=== PATIENT | female | born 1980 | race Two or more races ===

== ENCOUNTER 2025-07-31 09:19 | Emergency (ER) | payer MEDICAID, SELFPAY ==
[2025-07-31 09:34] VITALS: BP 145/88; PULSE 57; RESP 19; TEMP 36.8; O2SAT 99; BMI 34.7
--- NOTE | 2025-07-31 09:48 | PD.EDRME ---
Rapid Medical Screening Exam RME Arrival date/time: 07/31/25 09:19 45-year-old female presents to the emergency department today for complaints of generalized abdominal pain Chief Complaint: Abdominal Pain Vital signs: Vital Signs Temperature 98.3 F 07/31/25 09:34 Pulse Rate 57 L 07/31/25 09:34 Respiratory Rate 19 07/31/25 09:34 Blood Pressure 145/88 H 07/31/25 09:34 Pulse Oximetry (%) 99 07/31/25 09:34 Oxygen Delivery Method Room Air 07/31/25 09:34
[2025-07-31 10:40] LABS: Collection Type, Urine Clean Catch
[2025-07-31 10:44] LABS: Basophils # (Auto) 0.1 Thou/mm3 (0.0-0.2); Basophils % (Auto) 1 % (0-2.5); Eosinophils # (Auto) 0.1 Thou/mm3 (0.0-0.5); Eosinophils % (Auto) 2 % (0-10); Hematocrit 40.1 % (36.0-46.0); Hemoglobin 12.6 g/dL (12.0-16.0); Immature Granulocytes Auto 0.04 Thou/mm3 (0.00-0.00); Lymphocytes # (Auto) 1.6 Thou/mm3 (1.0-4.8); Lymphocytes % (Auto) 22 % (10-50); Mean Corpuscular HGB Conc 31.4 g/dl (31.0-37.0); Mean Corpuscular Hemoglobin 26.8 pg (25.0-35.0); Mean Corpuscular Volume 85 fL (80-100); Monocytes # (Auto) 0.5 Thou/mm3 (0.0-0.8); Monocytes % (Auto) 7 % (0-12); Neutrophils # (Auto) 4.8 Thou/mm3 (1.8-7.7); Neutrophils % (Auto) 68 % (37-80); Nucleated Red Blood Cell # 0.00 Thou/mm3 (0.00-0.00); Nucleated Red Blood Cell % 0 /100 WBC (0); Platelet Count 300 Thou/mm3 (140-440); RDW Standard Deviation 48.6 fL (36.4-46.3); Red Blood Count 4.71 Miln/mm3 (4.00-5.20); White Blood Count 7.1 Thou/mm3 (3.6-11.0)
[2025-07-31 10:52] VITALS: BP 151/86; PULSE 57; RESP 18; TEMP 36.7; O2SAT 100
[2025-07-31 10:56] LABS: HCG Qualitative,Urine Negative
--- NOTE | 2025-07-31 10:58 | PD.EDABDPN ---
ED Abdominal Pain RME/HPI General Chief Complaint: Abdominal Pain Stated complaint: ABD PAIN RATIATES TO BACK Time seen by provider: 07/31/25 10:19 Arrival date/time: 07/31/25 09:19 Limitations: no limitations RME / HPI RME / HPI narrative: 07/31/25 09:19 45-year-old female presents to the emergency department today for complaints of generalized abdominal pain DR. LABOY MAIN ED EVALUATION: 45-year-old female with past medical history of anemia presents to the Emergency Department with abdominal pain. She reports an episode on Saturday lasting 30 minutes that resolved after passing gas. This morning, she experienced a recurrence of pain, which worsened despite attempts at relief with tea and walking. She notes eating cabbage last night. Related Data Allergies Allergy/AdvReac Type Severity Reaction Status Date / Time No Known Allergies Allergy Verified 07/31/25 09:23 Review of Systems Review of Systems Systems Reviewed: All systems reviewed, normal except as documented Past Medical History Past Medical History GASTROINTESTINAL: Positive Gastrointestinal Disorders, Colitis and Gastroesophageal Reflux Disease REPRODUCTIVE: Positive Previous Pregnancies Family History FAMILY HISTORY: Positive Family Cancer (father) Surgical History SURGICAL: Positive Section Social History SMOKING STATUS: Never smoker SUBSTANCE USE: does not use ALCOHOL: Never ED Exam General Limitations: Present no limitations General appearance: Present alert and in no apparent distress Head Head exam: Present atraumatic, normocephalic and normal inspection Eye Eye exam: Present normal appearance, PERRL and EOMI ENT ENT exam: Present normal exam, normal oropharynx and mucous membranes moist Neck Neck exam: Present normal inspection, full ROM and trachea midline Chest Chest inspection: Present normal inspection and symmetric chest wall rise Respiratory Respiratory exam: Present normal lung sounds bilaterally Cardiovascular Cardiovascular exam: Present regular rate, normal rhythm and normal heart sounds Abdominal Exam Abdominal exam: Present soft and other (low-pitched bowel sounds but is otherwise unremarkable) Extremities Exam Extremities exam: Present normal inspection and full ROM Back Exam Back exam: Present normal inspection and full ROM Neurological Exam Neurological exam: Present alert, oriented X3 and CN II-XII intact Psychiatric Psychiatric exam: Present normal affect and normal mood Skin Skin exam: Present warm, dry, intact and normal color Course Quality Measures none Orders Category Date Time Status Plans Examiner NOW Care 07/31/25 11:01 Active Continuous Pulse Oximetry NOW Care 07/31/25 11:01 Completed EKG (ED ONLY) *Do not use* NOW Care 07/31/25 11:01 Completed Insert IV NOW Care 07/31/25 11:01 Active EKG (ED Only) Stat Exams 07/31/25 11:01 Draft US gall bladder Stat Exams 07/31/25 11:01 Completed XR chest 1V portable Stat Exams 07/31/25 11:01 Completed Amylase Stat Lab 07/31/25 10:25 Completed CBC Stat Lab 07/31/25 10:25 Completed Comprehensive Metabolic Panel Stat Lab 07/31/25 10:25 Completed HCG Qualitative,Urine Stat Lab 07/31/25 09:50 Completed Troponin I Stat Lab 07/31/25 10:25 Completed UA, C/S IF [Urinalysis, C/S if Indicated] Stat Lab 07/31/25 09:50 Completed Sodium Chloride 0.9% 1000 ml [Ns] 1,000 ml Med 07/31/25 11:01 Discontinued IV 1,000 mls/hr Vital Signs Vital signs: Vital Signs Temperature 98.3 F 07/31/25 09:34 Pulse Rate 57 L 07/31/25 09:34 Respiratory Rate 19 07/31/25 09:34 Blood Pressure 145/88 H 07/31/25 09:34 Pulse Oximetry (%) 99 07/31/25 09:34 Oxygen Delivery Method Room Air 07/31/25 09:34 Abdominal Pain MDM MDM Narrative MDM Narrative:: I, Amy Riojas, am scribing for and in the presence of Dr. Laboy. Patient data External records reviewed:: [facility] previous records Clinical information provided by:: patient Social determinants that could affect healthcare access:: none Patient has the following chronic illnesses:: anemia How is presenting disease/condition affected by chronic disease/condition?: uneffected by Evaluation data The following diagnostics were reviewed and interpreted by me:: lab results, radiology exam(s) and EKG tracing(s) (My interpretation: EKG performed at 1137 hours, sinus bradycardia, rate 55, no STEMI) Lab and/or radiology exams considered but not ordered:: none Interpretation Summary: Procedure(s): US gall bladder Accession Number(s): [id number] cc: Macario Laboy MD; Isaiah Jones MD; Subhash Miller MD~ Examination: Abdomen sonogram, Limited Date and time of exam: July 31, 2025, 11:00 AM Indications: Onset generalized abdominal pain today Technique: Real-time robertson scale transabdominal sonographic images of the upper abdomen obtained. Findings: Normal gallbladder. Normal common bile duct 0.3 cm Pancreatic head 2.6 cm Liver 16.3 cm with fatty infiltration Normal hepatopedal portal venous oh Patent IVC Impression: Normal gallbladder Fatty infiltration throughout the liver no focal liver lesions Dictated By: Subhash Miller MD Procedure(s): XR chest 1V portable Accession Number(s): [id number] cc: Macario Laboy MD; Isaiah Jones MD; Subhash Miller MD~ Examination: AP chest single view Technique one AP upright portable chest single view Date and time: July 31, 2025, 1121 hrs. Indications: Chest pain today. Findings: Minor prominence left ventricle No pneumonia or pulmonary edema. The osseous structures are intact. Impression: No active disease. Dictated By: Subhash Miller MD Medications / Prescriptions Medications or Prescriptions considered but not ordered:: none Medication administrations:: Medication Administration History Discontinued Medications Sodium Chloride (Ns) 1,000 mls @ 1,000 mls/hr IV .Q1H ONE Stop: 07/31/25 12:00 Last Admin: 07/31/25 11:15 Dose: 1,000 mls/hr Documented By: BY see above Consultations Consultation(s) initiated? (list below): No Diagnosis Differential diagnosis abdominal pain: other (Bowel obstruction, ileus, and diverticulitis.) Most likely diagnosis given after review of the tests above:: Abdominal gas pain Admission Indicated Admission indicated?: not indicated Admission Request Was there a request for admission?: No Disposition Plan Disposition Plan: Discharge Discharge Attestation Discharge Attestation: The patient and all family members were given an opportunity to ask questions and understood the discharge instructions. Discharge instructions specifically effects, indications for sooner follow up or return to the emergency department, and the expected course of current diagnosis. Patient condition: Stable Discharge Plan Plan Patient Disposition: HOME (Self Care) Patient condition on transfer: Stable Prescriptions/Referrals Referrals: Isaiah Jones MD [Primary Care Provider, Family Practice] - In 1 week Problem List Clinical Impression: Abdominal gas pain Patient/Caregiver Discharge Instructions Additional Instructions: Take Tylenol 500 mg 2 tabs every 6 hours PLUS Advil 200 mg gel 2 tablets as needed for pain. Please follow-up with your primary care physician within 2-3 days. Return to the Emergency Department as needed. [place] Tylenol 500 mg 2 tabletas cada 6 horas Y TAMBIEN Advil 200 mg gel 2 tabletas seg?n sea necesario para el dolor. Mari un seguimiento con melvin m?dico de cabecera dentro de 2-3 encarnacion. Regrese al Departamento de Emergencias seg?n sea necesario. Print Language: [place] Stand Alone Forms: Zoraida Award Info., Patient Portal Info Letter
[2025-07-31 10:59] LABS: Bacteria,Urine Rare; Bilirubin,Urine Negative (Negative); Blood,Urine 3+ (Negative); Clarity,Urine Hazy (Clear/Hazy); Color,Urine Lt-Yellow (Lt Yel-Yel); Culture Indicated,Urine Not Indicated; Glucose, Urine Negative (Negative); Ketones,Urine Negative (Negative); Leukocyte Esterase,Urine Positive (Negative); Nitrite,Urine Negative (Negative); PH,Urine 6.0 (5.0-7.0); Protein,Urine Negative (Neg - Trace); RBC,Urine 129 /hpf (0-3); Specific Gravity,Urine 1.024 (1.001-1.035); Squamous Epithelial Cell,Urine 2 /hpf (0-5); Urobilinogen,Urine Negative mg/dL (0.0-1.0); WBC,Urine 9 /hpf (0-5)
--- NOTE | 2025-07-31 11:01 | XR_ITS ---
Examination: Abdomen sonogram, Limited Date and time of exam: July 31, 2025, 11:00 AM Indications: Onset generalized abdominal pain today Technique: Real-time robertson scale transabdominal sonographic images of the upper abdomen obtained. Findings: Normal gallbladder. Normal common bile duct 0.3 cm Pancreatic head 2.6 cm Liver 16.3 cm with fatty infiltration Normal hepatopedal portal venous oh Patent IVC Impression: Normal gallbladder Fatty infiltration throughout the liver no focal liver lesions
--- NOTE | 2025-07-31 11:01 | XR_ITS ---
Examination: AP chest single view Technique one AP upright portable chest single view Date and time: July 31, 2025, 1121 hrs. Indications: Chest pain today. Findings: Minor prominence left ventricle No pneumonia or pulmonary edema. The osseous structures are intact. Impression: No active disease.
--- NOTE | 2025-07-31 11:01 | EKG_ITS ---
[facility], [place] Test Date: 2025-07-31 Pat Name: TAWNY RAMOS Department: Room: - Gender: Female [employer] T[employer]: : 1980 Requested By: Macario Moreno Order Number: [id number] Reading MD: Macario Moreno Measurements Intervals [place] Rate: 55 P: 55 UT: 151 QRS: 41 QRSD: 86 T: 20 QT: 455 QTc: 438 Interpretive Statements SINUS BRADYCARDIA Compared to ECG 07/26/2022 12:02:01 Sinus arrhythmia no longer present /store/[id number].pdf
[2025-07-31] MEDS: SODIUM CHLORIDE 0.9% 1000 ML 1,000 ML IV (11:15)
[2025-07-31 11:23] LABS: Alanine Aminotransferase 27 U/L (10-49); Albumin, Serum 4.4 gm/dL (3.5-5.0); Albumin/Globulin Ratio 1.8 (1.2-2.2); Alkaline Phosphatase 95 U/L (46-116); Amylase 43 U/L (30-118); Anion Gap 8 (7-16); Aspartate Amino Transferase 37 U/L (0-34); BUN/Creatinine Ratio 10 Ratio (12-20); Bilirubin,Total 0.5 mg/dL (0.3-1.2); Blood Urea Nitrogen 9 mg/dL (9-23); Calcium 9.3 mg/dL (8.3-10.6); Calcium (Corrected) 9.3 mg/dL (8.5-10.1); Carbon Dioxide 25.9 mMol/L (20.0-31.0); Chloride 106 mMol/L (98-107); Creatinine (Component) 0.9 mg/dL (0.6-1.3); Estimated Creatinine Clearance 94.9 mL/min (>60); Globulin 2.5 gm/dL (2.3-3.5); Glucose 94 mg/dL (74-106); Osmolality,Calculated 278 (275-295); Potassium 3.8 mMol/L (3.4-5.1); Sodium 140 mMol/L (136-145); Total Protein 6.9 gm/dL (5.7-8.2); Troponin I < 0.002 ng/mL (0.0-0.045); eGFR > 60 See Note
[2025-07-31 12:03] VITALS: BP 159/82; PULSE 59; RESP 16; O2SAT 100
[2025-07-31 12:59] VITALS: BP 140/94; PULSE 68; RESP 19; O2SAT 100
== END 2025-07-31 13:00 | disposition home or self-care (01) ==
PROVIDERS: Nurse Practitioner Primary Care; Emergency Provider Family Medicine; PCP Family Medicine
DX: R14.1 Gas pain (principal); K76.0 Fatty (change of) liver, not elsewhere classified; D64.9 Anemia, unspecified; R00.1 Bradycardia, unspecified
CPT/HCPCS: 36415; 71045; 76705; 80053; 81001; 81025; 82150; 84484; 85025; 93005; 99284; J7030